=== PATIENT | female | born 1940 | race Caucasian/White ===

== ENCOUNTER 2019-12-18 09:24 | Day surgery (SDC) | payer MEDICARE, BC ==
[2019-12-18] MEDS ORDERED: Midazolam 1 MG/ML 2 ML SDV IV ONE (09:25)
[2019-12-18] MEDS ORDERED: Sodium Chloride 0.9% 10 ML Syringe FLUSH PRN (09:30)
[2019-12-18] MEDS ORDERED: Lactated Ringers 1,000 ML IV PRN (09:30)
[2019-12-18] MEDS ORDERED: acetaZOLAMIDE 500 MG Cap.ER PO ONE (09:30)
--- NOTE | 2019-12-18 13:08 | OR ---
DATE OF OPERATION: 12/18/2019 SURGEON: Susanna Arana MD PREOPERATIVE DIAGNOSIS: Visually significant cataract, right eye. POSTOPERATIVE DIAGNOSIS: Visually significant cataract, right eye. PROCEDURES PERFORMED: Phacoemulsification with intraocular lens placement, right eye. ASSISTANTS: None. ANESTHESIA: Local with sedation. COMPLICATIONS: None. BLOOD LOSS: None. IMPLANTS: An Larry ACU0T0, 23.5 diopter lens, serial number [id number] implanted. CDE: 3.32. DESCRIPTION OF PROCEDURE: After risks and benefits were reviewed with the patient, consent was obtained in the preoperative area, and the operative eye was marked with a surgical pen. In the preoperative area, a pledget was used to dilate the pupil consisting of a mixture of phenylephrine 10%, cyclopentolate 2%, moxifloxacin 0.5%, and bupivacaine 0.75%. The patient was taken to the operating room, where a time-out was performed, and the patient was placed under monitored anesthesia care. Topical tetracaine was used for anesthesia. The operative eye was prepped and draped for ophthalmic surgery, and the microscope was brought into position and focused. A paracentesis incision was made, followed by injection of preservative-free 1% lidocaine into the anterior chamber, followed by injection of Viscoat into the anterior chamber. A microkeratome blade was used to make a corneal limbal incision temporally. A cystotome was used to make the beginning of the capsulorrhexis, which was carried around 360 degrees in a curvilinear fashion using Utrata forceps. A Kelley cannula with BSS was used to hydrodissect and hydrodelineate the nucleus. The nucleus was removed in a divide and conquer manner using phacoemulsification. Irrigation and aspiration were used to remove the remaining cortical material. Provisc was used to inflate the capsular bag, and a pre-loaded Larry ACU0T0, 23.5 diopter lens, serial number [id number] was injected into the capsular bag. A Sinskey hook was used to position and center the lens. Next, irrigation and aspiration was used to remove any remaining viscoelastic and cortical material from the anterior chamber. BSS on a cannula was used to inflate the anterior chamber and hydrate the wound. The wound was checked and found to be watertight. 1 mg of Moxifloxacin was injected into the anterior chamber. Drapes were removed and the eye was cleaned. A drop of brimonidine 0.15% and a drop of TobraDex was placed. The eye was shielded, and the patient was taken to the recovery room in stable condition. /[id number] CEASAR/ROXANNA
== END 2019-12-18 11:34 | disposition home or self-care (01) ==
LOC: FB.SDS 09:24
PROVIDERS: ATTEND Ophthalmology
DX: H25.813 Combined forms of age-related cataract, bilateral (principal); H35.033 Hypertensive retinopathy, bilateral; H04.123 Dry eye syndrome of bilateral lacrimal glands; H52.03 Hypermetropia, bilateral; I10 Essential (primary) hypertension; J44.9 Chronic obstructive pulmonary disease, unspecified; Z85.3 Personal history of malignant neoplasm of breast; Z79.899 Other long term (current) drug therapy; Z87.891 Personal history of nicotine dependence; Z90.49 Acquired absence of other specified parts of digestive tract; Z98.890 Other specified postprocedural states
CPT/HCPCS: 00142; 66984; A9270; J2250; V2632

== ENCOUNTER 2020-01-01 08:17 | Day surgery (SDC) | payer MEDICARE, BC ==
[2020-01-01] MEDS ORDERED: Midazolam 1 MG/ML 2 ML SDV IV ONE (08:18)
[2020-01-01] MEDS ORDERED: Sodium Chloride 0.9% 10 ML Syringe FLUSH PRN (08:30)
[2020-01-01] MEDS ORDERED: Lactated Ringers 1,000 ML IV PRN (08:30)
[2020-01-01] MEDS ORDERED: acetaZOLAMIDE 500 MG Cap.ER PO ONE (10:30)
--- NOTE | 2020-01-02 10:00 | OR ---
DATE OF OPERATION: 01/01/2020 SURGEON: Susanna Arana MD PREOPERATIVE DIAGNOSIS: Visually significant cataract, left eye. POSTOPERATIVE DIAGNOSIS: Visually significant cataract, left eye. PROCEDURES PERFORMED: Phacoemulsification with intraocular lens placement, left eye. ASSISTANTS: None. ANESTHESIA: Local with sedation. COMPLICATIONS: None. BLOOD LOSS: None. IMPLANTS: An Larry ACU0T0, 23.5 diopter lens, serial number [id number] implanted. CDE: 5.31. DESCRIPTION OF PROCEDURE: After risks and benefits were reviewed with the patient, consent was obtained in the preoperative area, and the operative eye was marked with a surgical pen. In the preoperative area, a pledget was used to dilate the pupil consisting of a mixture of phenylephrine 10%, cyclopentolate 2%, moxifloxacin 0.5%, and bupivacaine 0.75%. The patient was taken to the operating room, where a time-out was performed, and the patient was placed under monitored anesthesia care. Topical tetracaine was used for anesthesia. The operative eye was prepped and draped for ophthalmic surgery, and the microscope was brought into position and focused. A paracentesis incision was made, followed by injection of preservative-free 1% lidocaine into the anterior chamber, followed by injection of Viscoat into the anterior chamber. A microkeratome blade was used to make a corneal limbal incision temporally. A cystotome was used to make the beginning of the capsulorrhexis, which was carried around 360 degrees in a curvilinear fashion using Utrata forceps. A Kelley cannula with BSS was used to hydrodissect and hydrodelineate the nucleus. The nucleus was removed in a divide and conquer manner using phacoemulsification. Irrigation and aspiration were used to remove the remaining cortical material. Provisc was used to inflate the capsular bag, and a pre-loaded Larry ACU0T0, 23.5 diopter lens, serial number [id number] was injected into the capsular bag. A Sinskey hook was used to position and center the lens. Next, irrigation and aspiration was used to remove any remaining viscoelastic and cortical material from the anterior chamber. BSS on a cannula was used to inflate the anterior chamber and hydrate the wound. The wound was checked and found to be watertight. 1 mg of Moxifloxacin was injected into the anterior chamber. Drapes were removed and the eye was cleaned. A drop of brimonidine 0.15% and a drop of TobraDex was placed. The eye was shielded, and the patient was taken to the recovery room in stable condition. /[id number] CEASAR/ROXANNA
== END 2020-01-01 10:40 | disposition home or self-care (01) ==
LOC: FB.SDS 08:17
PROVIDERS: ATTEND Ophthalmology
DX: H25.812 Combined forms of age-related cataract, left eye (principal); I10 Essential (primary) hypertension; J44.9 Chronic obstructive pulmonary disease, unspecified; H35.033 Hypertensive retinopathy, bilateral; H04.123 Dry eye syndrome of bilateral lacrimal glands; H52.03 Hypermetropia, bilateral; Z87.891 Personal history of nicotine dependence
CPT/HCPCS: 00142-QZ; A9270-GY; J2250; V2632

== ENCOUNTER 2022-01-21 11:02 | Emergency (ER) | payer MEDICARE, BC | END 2022-01-21 13:25 | disposition home or self-care (01) | LOC: FB.ED 11:02 | DX: M54.2 Cervicalgia (principal); J44.9 Chronic obstructive pulmonary disease, unspecified; I10 Essential (primary) hypertension; Z79.899 Other long term (current) drug therapy; Z90.49 Acquired absence of other specified parts of digestive tract; Z90.710 Acquired absence of both cervix and uterus | CPT/HCPCS: 72125; 99283 ==

== ENCOUNTER 2022-01-24 10:36 | Emergency (ER) | payer MEDICARE, BC | END 2022-01-24 11:45 | disposition home or self-care (01) | LOC: FB.ED 10:36 | DX: M54.12 Radiculopathy, cervical region (principal); J44.9 Chronic obstructive pulmonary disease, unspecified; I10 Essential (primary) hypertension; Z79.899 Other long term (current) drug therapy; Z90.49 Acquired absence of other specified parts of digestive tract | CPT/HCPCS: 99283 ==

== ENCOUNTER 2022-01-26 01:15 | Inpatient (IN) | payer MEDICARE, BC ==
[2022-01-26] MEDS ORDERED: hydrOXYzine HCl 50 MG/ML SDV IM ONE (01:25)
[2022-01-26] MEDS ORDERED: HYDROmorphone 2 MG/ML SDV IM ONE (01:25)
[2022-01-26] MEDS ORDERED: Ketorolac 30 MG/ML SDV IM ONE (02:12)
[2022-01-26] MEDS ORDERED: Cyclobenzaprine 10 MG Tab PO ONE (02:12)
[2022-01-26] MEDS ORDERED: Sodium Chloride 0.9% 500 ML IV ONE (02:15)
[2022-01-26] MEDS ORDERED: Ketorolac 30 MG/ML SDV IVPUSH ONE (02:16)
[2022-01-26] MEDS: Sodium Chloride 0.9% 10 ML Syringe FLUSH PRN (02:25)
[2022-01-26 02:36] LABS: ESTIMATED GFR 51 mL/min (>60)
[2022-01-26] MEDS ORDERED: Sodium Chloride 0.9% 1,000 ML IV SCH (07:30)
[2022-01-26] MEDS ORDERED: Bisacodyl 5 MG Tab PO PRN (10:54)
[2022-01-26] MEDS ORDERED: Ondansetron 4 MG/2 ML SDV IVPUSH PRN (10:54)
[2022-01-26] MEDS ORDERED: LORazepam 0.5 MG Tab PO PRN (10:54)
[2022-01-26] MEDS ORDERED: Hyoscyamine 0.125 MG Tab.SL SL PRN (11:06)
[2022-01-26] MEDS ORDERED: Baclofen 10 MG Tab PO PRN (11:08)
[2022-01-26] MEDS ORDERED: Dexamethasone 4 MG/ML 5 ML MDV IVPUSH SCH (11:15)
[2022-01-26] MEDS: Dexamethasone 4 MG/ML SDV IVPUSH SCH (11:56)
[2022-01-26] MEDS: Acetaminophen 650 MG Tab.ER PO SCH ×2 (14:37→20:09)
[2022-01-26] MEDS: Gabapentin 300 MG Cap PO SCH ×2 (14:40→20:05)
[2022-01-26] MEDS: Morphine 10 MG/0.5 ML Oral Syringe PO PRN ×2 (14:46→23:41)
[2022-01-27] MEDS: Sodium Chloride 0.9% 10 ML Syringe FLUSH PRN (08:14)
[2022-01-27] MEDS: Gabapentin 300 MG Cap PO SCH ×3 (08:15→20:34)
[2022-01-27] MEDS: Acetaminophen 650 MG Tab.ER PO SCH ×3 (08:15→20:40)
[2022-01-27] MEDS: Dexamethasone 4 MG/ML SDV IVPUSH SCH (08:15)
[2022-01-27] MEDS: Morphine 10 MG/0.5 ML Oral Syringe PO PRN ×4 (09:10→20:33)
[2022-01-28] MEDS: Morphine 10 MG/0.5 ML Oral Syringe PO PRN ×5 (06:10→22:29)
[2022-01-28] MEDS: Acetaminophen 650 MG Tab.ER PO SCH ×3 (08:40→21:43)
[2022-01-28] MEDS: Sodium Chloride 0.9% 10 ML Syringe FLUSH PRN (08:41)
[2022-01-28] MEDS: Dexamethasone 4 MG/ML SDV IVPUSH SCH (08:41)
[2022-01-28] MEDS: Gabapentin 300 MG Cap PO SCH ×3 (08:41→21:43)
[2022-01-28] MEDS ORDERED: Bisacodyl 5 MG Tab PO PRN (08:52)
[2022-01-28] MEDS ORDERED: fentaNYL 12 MCG/HR Transdermal Patch TRDERM SCH (09:00)
[2022-01-29] MEDS: Morphine 10 MG/0.5 ML Oral Syringe PO PRN ×2 (08:36→12:32)
[2022-01-29] MEDS: Acetaminophen 650 MG Tab.ER PO SCH (08:37)
[2022-01-29] MEDS: Gabapentin 300 MG Cap PO SCH (08:38)
[2022-01-29] MEDS: Dexamethasone 4 MG/ML SDV IVPUSH SCH (08:39)
== END 2022-01-29 12:15 | disposition swing bed (61) | DRG 951 ==
LOC: FB.ED 01:15 → FB.MS 09:22
PROVIDERS: ADMIT Family Medicine; ATTEND Family Medicine
DX: Z51.5 Encounter for palliative care (principal); C34.90 Malignant neoplasm of unspecified part of unspecified bronchus or lung; C78.7 Secondary malignant neoplasm of liver and intrahepatic bile duct; C79.51 Secondary malignant neoplasm of bone; Z66 Do not resuscitate; I10 Essential (primary) hypertension; H54.7 Unspecified visual loss; J44.9 Chronic obstructive pulmonary disease, unspecified; M19.90 Unspecified osteoarthritis, unspecified site; M54.12 Radiculopathy, cervical region; Z85.3 Personal history of malignant neoplasm of breast; Z87.01 Personal history of pneumonia (recurrent); Z90.49 Acquired absence of other specified parts of digestive tract; Z90.710 Acquired absence of both cervix and uterus; Z98.890 Other specified postprocedural states; Z87.891 Personal history of nicotine dependence; Z97.4 Presence of external hearing-aid
CPT/HCPCS: 36415; 72125; 80048; 81001; 84484; 85025; 86140; A9270-GY; J1100; J1170; J1885; J3410; J3490; J7030; J7040